=== PATIENT | male | born 1970 ===

== ENCOUNTER 2017-04-07 06:02 | Day surgery (SDC) | payer BC ==
[2017-03-31 09:11] VITALS: BMI 46.7
[2017-04-07] MEDS ORDERED: Lidocaine 2% Inj (20ml) ONE (06:42)
[2017-04-07] MEDS ORDERED: Midazolam 2 MG/2 ML VIAL ONE ×2 (06:43→08:15)
[2017-04-07] MEDS ORDERED: Phenylephrine 10 mg/ml Inj ONE (06:43)
[2017-04-07] MEDS ORDERED: Iodixanol 320 MG/ML 100 ML BOTTLE IV ONE (06:44)
[2017-04-07] MEDS ORDERED: Iohexol 350mgl/ml 50 ML ONE (06:44)
[2017-04-07] MEDS ORDERED: Nitroglycerin 50mg in D5W 0 MG/0 ML BOTTLE IV ONE (06:45)
[2017-04-07] MEDS ORDERED: Iodixanol 320 MG/ML 200 ML BOTTLE IV ONE (06:45)
[2017-04-07] MEDS ORDERED: Sodium Chloride 0.9% 1,000 ML IV SCH (08:45)
[2017-04-07 09:04] VITALS: RESP 18; TEMP 97.9
--- NOTE | 2017-04-07 09:42 | CARDCATH ---
PROCEDURE DATE: 04/07/2017 PROCEDURES: 1. Selective left and right coronary angiography. 2. Left ventriculography. 3. Right femoral arteriography. 4. Mynx deployment. HISTORY: This is a 46-year-old male with a history of diabetes, obesity, and a recent abnormal stress test, referred for evaluation of exertional dyspnea and chest discomfort. Cardiac catheterization was recommended. INDICATIONS: As above. FINDINGS: HEMODYNAMICS: The aortic pressure was 130/76 with left ventricular pressure of 130/16. CORONARY ANATOMY: 1. The left mainstem was normal. 2. Left anterior descending artery and its branches were normal as well. 3. The left circumflex artery and its branches were also normal. 4. The right coronary artery was dominant and normal. Its branches were normal as well. LEFT VENTRICULOGRAPHY: A hand injection was performed in the left ventricle revealing normal wall motion and ejection fraction is 60%. There is no aortic valve gradient noted on catheter pullback. Mitral regurgitation was not assessed. CONCLUSION: 1. Noncardiac chest pain. 2. Normal coronary arteries. 3. Normal left ventricular systolic function. RECOMMENDATIONS: Given the above findings, aggressive risk factor control is advised. Further evaluation for noncardiac versus chest pain can be entertained. Judd Luevano MD cc: Leeroy Blankenship MD
[2017-04-07 10:41] VITALS: O2SAT 97
[2017-04-07 11:07] VITALS: BP 114/71; PULSE 67
== END 2017-04-07 12:00 | disposition home or self-care (01) ==
LOC: CATH 06:02
PROVIDERS: ATTEND Internal Medicine Cardiovascular Disease
DX: R07.89 Other chest pain (principal); R06.09 Other forms of dyspnea; R94.39 Abnormal result of other cardiovascular function study; E66.9 Obesity, unspecified; E11.9 Type 2 diabetes mellitus without complications; Z68.42 Body mass index [BMI] 45.0-49.9, adult; Z79.84 Long term (current) use of oral hypoglycemic drugs
CPT/HCPCS: 36415; 86850; 86900; 93458; 99152; 99153; C1760; C1769; C2629; J1644; J2250; J3010; J7030; J7040